=== PATIENT | male | born 1945 | race Caucasian/White ===

== ENCOUNTER 2019-06-04 06:06 | Observation (INO) ==
[2019-05-30 09:38] LABS: BASO# 0.05 X1000 (0.0-0.2); BASO% 0.9 % (0.0-0.8); EOS# 0.12 X1000 (0.0-0.7); EOS% 2.1 % (0.0-10.0); HEMATOCRIT 42.5 % (42.0-52.0); HEMOGLOBIN 14.4 g/dL (14.0-18.0); LYMPH# 1.45 X1000 (1.2-3.4); LYMPH% 25.2 % (20.5-51.1); MCH 32.3 PG (27-31); MCHC 33.9 g/dL (33-37); MCV 95.3 FL (81-99); MONO# 0.74 X1000 (0.11-0.59); MONO% 12.8 % (1.7-9.3); MPV 10.1 FL (7.4-10.4); PLT 187 X1000 (130-400); RBC 4.46 XMIL (4.7-6.1); RDW 12.5 % (11.5-14.5); WBC 5.76 X1000 (4.8-10.8)
--- NOTE | 2019-05-30 09:49 | EKG Report ---
Test Performed on : 05/30/2019 09:18:18 AM Test Reason : pat Blood Pressure : / mmHG Vent. Rate : 047 BPM Atrial Rate : 047 BPM P-R Int : 206 ms QRS Dur : 104 ms QT Int : 442 ms P-R-T Axes : 060 042 051 degrees QTc Int : 391 ms Sinus bradycardia. Otherwise normal ECG When compared with ECG of 18-NOV-2017 08:43, No significant change was found Confirmed by Manuel Castrejon MD ([id number]) on 06/02/2019 8:44:21 PM
[2019-05-30 10:00] LABS: AGAP 10; BUN 18 mg/dL (8-22); CALCIUM 9.5 mg/dL (8.8-10.2); CHLORIDE 104 mmol/L (98-107); COSMO 283; ESTIMATED GFR > 60; GLUCOSE 102 mg/dL (70-104); POTASSIUM 4.8 mmol/L (3.5-5.1); SODIUM 141 mmol/L (136-145); TCO2 27 mmol/L (25-35)
[2019-06-04] MEDS ORDERED: LR 1,000 ML ONE ×2 (07:05→09:22)
[2019-06-04] MEDS ORDERED: KEFZOL 1 GM/D5W 1 GM/50 ML IVPB ONE ×2 (07:05)
[2019-06-04] MEDS ORDERED: QUELICIN (DOSE) ONE (07:11)
[2019-06-04] MEDS ORDERED: ROBINUL ONE ×2 (07:11→08:19)
[2019-06-04] MEDS ORDERED: ZOFRAN ONE (07:57)
[2019-06-04] MEDS ORDERED: FENTANYL ONE (07:57)
[2019-06-04] MEDS ORDERED: DIPRIVAN 1% ONE (07:57)
[2019-06-04] MEDS ORDERED: DECADRON ONE (07:57)
[2019-06-04] MEDS ORDERED: XYLOCAINE-MPF 2% ONE (07:57)
[2019-06-04] MEDS ORDERED: B & O 16A SUPP ONE (08:34)
[2019-06-04] MEDS ORDERED: ULTRAM PO PRN (09:06)
[2019-06-04] MEDS ORDERED: DITROPAN PO PRN (09:15)
[2019-06-04] MEDS ORDERED: PHENERGAN IV PRN (09:15)
[2019-06-04] MEDS ORDERED: B & O 15A SUPP PR PRN (09:15)
[2019-06-04] MEDS ORDERED: SODIUM CHLORIDE 0.9% INJ PRN (09:15)
[2019-06-04] MEDS ORDERED: LABETALOL IV PRN (09:15)
[2019-06-04] MEDS ORDERED: LR 1,000 ML IV SCH (09:15)
--- NOTE | 2019-06-04 09:45 | OPERATIVE NOTE ---
PROCEDURE DATE: 06/04/2019 SURGEON: Molly Coughlin PREOPERATIVE DIAGNOSIS: Enlarged prostate with obstructive voiding. POSTOPERATIVE DIAGNOSIS: Enlarged prostate with obstructive voiding. PROCEDURE PERFORMED: Cystoscopic exam with transurethral resection of prostate. ANESTHESIA: General via laryngeal mask. FINDINGS: Cystoscopic exam: Urethra-greater than 25-Moldovan without stricture. Prostate - coapting lateral lobes elevated, bladder neck, length approximately 4 cm. Bladder - normal ureteral orifices bilaterally. Grade 2 trabeculations. Mild cellules no diverticula. 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 He has been on finasteride for several years. He states he is tired of taking the medication and is having some increasing voiding problems description. DESCRIPTION OF PROCEDURE: After informed consent was obtained from the patient and him receiving IV antibiotics, he was taken the main OR cystoscopy room, placed in supine position. General anesthesia via laryngeal mask was achieved. He was then placed in the low lithotomy position and prepped and draped in the usual sterile fashion for cystoscopic exam. A 21-Moldovan sheath cystoscope was passed the patient's urethra, prostate, and bladder with findings noted above. The cystoscope was removed and the 25-Moldovan continuous flow resectoscope sheath was passed through the patient's urethra, prostate, and into the bladder without difficulty. The thick Gyrus loop electrode was placed. Both ureteral orifices were visualized as well as the verumontanum. The procedure was started at the 6 o'clock position going to the level of bladder neck, level of the verumontanum, proceeding in a counterclockwise direction to the 10 o'clock position. Resection was then started back at 6 o'clock position going to the level of bladder neck, level of the verumontanum, proceeding in a clockwise direction to the 10 o'clock position. Tissue from the anterior prostatic urethra was removed between the level of bladder neck, level of the verumontanum between the 10 o'clock and 2 o'clock positions. Hemostasis was achieved with electrocautery. The chips were removed from the bladder with the [employer] evacuators. The bladder neck was incised at the 6 o'clock position, going out to the periprostatic tissue. At completion of the procedure, both ureteral orifices were intact. The verumontanum was intact. The bladder was left distended. The cystoscope was removed. A 22-Moldovan, 3 way Payne catheter was passed through the patient's urethra, prostate, and bladder without difficulty. 30 mL sterile water placed into Payne with balloon. Payne was placed to gravity drain. The efflux was clear. Continuous bladder irrigation of normal saline was started. A 16 A B O suppository was passed through the patient's anal sphincter and into the rectum. He tolerated the procedure well. Estimated blood loss 50 mL. He was taken to recovery room in good condition. cc: Alex Dutton MD
[2019-06-04] MEDS: KEFZOL 1 GM/D5W 1 GM/50 ML IVPB IV SCH ×2 (15:36→21:56)
[2019-06-04] MEDS: PEPCID PO SCH (21:56)
[2019-06-04] MEDS: COLACE PO SCH (21:56)
[2019-06-04] MEDS: PERIDEX MT SCH (21:56)
[2019-06-05] MEDS: KEFZOL 1 GM/D5W 1 GM/50 ML IVPB IV SCH (03:12)
[2019-06-05 06:23] LABS: HEMATOCRIT 39.7 % (42.0-52.0); HEMOGLOBIN 13.2 g/dL (14.0-18.0); MCH 32.2 PG (27-31); MCHC 33.2 g/dL (33-37); MCV 96.8 FL (81-99); MPV 10.6 FL (7.4-10.4); RBC 4.1 XMIL (4.7-6.1); RDW 12.6 % (11.5-14.5); WBC 12.53 X1000 (4.8-10.8)
[2019-06-05 06:46] LABS: AGAP 10; BUN 14 mg/dL (8-22); CALCIUM 9.3 mg/dL (8.8-10.2); CHLORIDE 106 mmol/L (98-107); COSMO 287; CREATININE 1.1 mg/dL (0.7-1.2); ESTIMATED GFR > 60; GLUCOSE 127 mg/dL (70-104); POTASSIUM 4.1 mmol/L (3.5-5.1); SODIUM 143 mmol/L (136-145); TCO2 27 mmol/L (25-35)
[2019-06-05] MEDS: COLACE PO SCH (10:19)
[2019-06-05] MEDS: PERIDEX MT SCH (10:19)
[2019-06-05] MEDS: PEPCID PO SCH (10:19)
[2019-06-05 11:59] VITALS: BP 138/75
== END 2019-06-05 15:42 | disposition home or self-care (01) ==
LOC: PAT 06:06 → 4N 06:06
PROVIDERS: ADMIT Urology; ATTEND Urology
PROC: UR.TURP (2019-06-04 07:46)
CPT/HCPCS: 80048; 85025; 85027; 88305; 93005; 93010; 94799; A9270; J0330; J0690; J1100; J2405; J3010; J7120